=== PATIENT | male | born 1995 | race Caucasian/White ===

== ENCOUNTER 2017-01-02 17:06 | Inpatient (IN) | payer OTHER ==
[~2017-01-02] VITALS: Ht 167.6 cm; Wt 56.2 kg
--- NOTE | ~2017-01-02 | DS ---
Unit #: [id number] #: [id number] Patient: CARLINE SANCHEZ [id number] [facility] [address] [place] [address] [id number] MR#: [id number] NAME: CARLINE SANCHEZ ROOM: [facility] Age: 21 Sex: M Admission Date: 01/02/2017 : 1995 Discharge Date: 01/05/2017 Attending Physician: Alex Cruz M.D. Primary Care Physician: Generic Doctor Not In System DISCHARGE SUMMARY REASON FOR ADMISSION The patient is a 21-year-old white male admitted to the [facility] with increasing depression and use of cannabis. HOSPITAL COURSE The patient was admitted to the [facility] and placed on routine detoxification protocol for benzodiazepines. He was begun on citalopram 20 mg daily to address depressive symptoms. The patient was significantly brighter by the time of his discharge. He participated actively within the therapeutic milieu, was seen much less negative about his current life situation. This physician discussed with the patient his need to seek legal representation in his legal case in [place], [place], and the patient was agreeable with this plan, and by 01/05/2017 discharge was ordered. FINAL DIAGNOSES 1. Dysthymic disorder. 2. Cannabis use disorder. 3. Sedative-hypnotic use disorder. DISPOSITION ON DISCHARGE The patient was discharged on the following medications: 1. Celexa 20 mg daily for depression. 2. Trazodone 50 mg at h.s. p.r.n. insomnia. DIET AND ACTIVITY No dietary or physical restrictions placed on the patient at the time of discharge. FOLLOWUP Followup will take place through the auspices of community mental health resources. Dictated by... Alex Cruz M.D. CB/dianna TD: 01/06/2017 12:45 JOB #: [id number] Unit #: [id number] #: [id number] Patient: CARLINE SANCHEZ DISCHARGE SUMMARY Page 1 of 1 X Alex Cruz MD X DISCHARGE SUMMARY
--- NOTE | ~2017-01-02 | HP ---
Unit #: [id number] #: [id number] Patient: CARLINE SANCHEZ [id number] [facility] [address] [place] [address] [id number] MR#: [id number] NAME: CARLINE SANCHEZ ROOM: [facility]181 Age: 21 Sex: M Admission Date: 01/02/2017 : 1995 Attending Physician: Alex Cruz M.D. Admitting Physician: Alex Cruz M.D. Primary Care Physician: Generic Doctor Not In System HISTORY AND PHYSICAL HISTORY OF PRESENT ILLNESS Patient is a 21-year-old male admitted to [facility] on 01/02/2017 for suicidal ideations. PAST MEDICAL HISTORY Significant for polysubstance use including marijuana and benzodiazepines. PAST SURGICAL HISTORY 1. Chest tube after a pneumothorax. 2. Left femur. 3. Collar bone. SOCIAL HISTORY He works at [employer]. He lives with his ex. He smokes one-half pack of cigarettes daily, uses two grams of marijuana daily and benzos whenever he can get them. FAMILY MEDICAL HISTORY Noncontributory. ALLERGIES No known drug allergies. CURRENT MEDICATIONS Patient is not on any home medications. REVIEW OF SYSTEMS CONSTITUTIONAL: No fever or chills. HEENT: Denies any sore throat, ear pain or runny nose. CARDIOVASCULAR: Denies chest pain, irregular heart rhythm or palpitations. CHEST: Denies shortness of breath or cough. No hemoptysis. GASTROINTESTINAL: Denies nausea, vomiting, diarrhea or chronic constipation. ENDOCRINE: Denies history of increased thirst or urination. No recent significant weight loss or gain. GENITOURINARY: Denies dysuria, frequency, or hematuria. SKIN: Denies any rashes. HEMATOLOGIC: Denies history of increased bleeding or bruising. MUSCULOSKELETAL: Denies any hot, swollen joints. No generalized muscle pain. NEUROLOGIC: Denies problems with vision or speech. No frequent, severe headaches. No numbness, tingling or weakness in any extremities. Denies loss of bladder or bowel control. Unit #: [id number] #: [id number] Patient: CARLINE SANCHEZ PHYSICAL EXAM GENERAL: He is awake, alert and oriented in no acute distress. VITAL SIGNS: Temperature 98.2, heart rate 71, respiration 16, blood pressure 126/76. HEIGHT: 5 foot 6. WEIGHT: 124 pounds. SKIN: Warm and dry without rash or lesion. HEENT: Normocephalic. TMs not viewed. Oral and nasal passages clear. Conjunctivae clear. PERRLA. EOMs intact. NECK: Supple without lymphadenopathy or thyromegaly. HEART: Regular rate and rhythm without murmur. LUNGS: Clear. ABDOMEN: Soft, nontender. : Not done. EXTREMITIES: No evidence of cyanosis, clubbing or edema. Moves all without focal deficit. NEUROLOGICAL: Grossly within normal limits. Cranial Nerves: II: Visual ospina are intact. III, IV AND : Extraocular movements are intact. Pupils are equal, round and reactive to light. V: Facial sensation is grossly normal. VII: Facial movements and expression are normal. VIII: Auditory acuity grossly intact. IX, X: Uvula is midline. Phonation is normal. XI: Patient shrugs shoulders and turns head normally. XII: Tongue protrudes in the midline. Sensory and Motor Function: Sensory and motor sensation is grossly normal. Motor: moves all extremities well. IMPRESSION 1. Psychiatric admission. 2. Polysubstance use. 3. Nicotine dependence. RECOMMENDATIONS Psychiatric per psychiatrist. MEDICAL: No contraindication to participate in facility activities. MEDICAL PROGNOSIS Good. MEDICAL CONDITION Stable. Dictated by... Kimberlee Orozco/dutch TD: 01/04/2017 01:57 JOB #: [id number] Unit #: [id number] #: [id number] Patient: CARLINE SANCHEZ HISTORY AND PHYSICAL Page 1 of 1 X CARINA LUA APRN HISTORY AND PHYSICAL
--- NOTE | ~2017-01-02 | PA ---
Unit #: [id number] #: [id number] Patient: CARLINE SANCHEZ [id number] [facility] [address] [place] [address] [id number] MR#: [id number] NAME: CARLINE SANCHEZ ROOM: 81 Age: 21 Sex: M Admission Date: 01/02/2017 : 1995 Date of Assessment: 01/03/2017 Attending Physician: Alex Cruz M.D. Admitting Physician: Alex Cruz M.D. Primary Care Physician: Generic Doctor Not In System PSYCHIATRIC ASSESSMENT IDENTIFYING INFORMATION The patient is a 21-year-old white male admitted to the [address] [place] [address] reporting increasing suicidal ideation, anxiety and abuse of various psychoactive substances. CHIEF COMPLAINT None given. INFORMANT Patient and chart, reliability good. HISTORY OF PRESENT ILLNESS The patient is a 21-year-old white male admitted to the [address] [place] [address] reporting a history of increasing anxiety, depression and suicidal ideation. The patient reports that he has had plans to burn down his business or shoot himself using a weapon that "won't fucking jam." The patient reports that he last attempted suicide approximately two years ago but has never sought psychiatric help and has never gone on an antidepressant or other psychiatric medication. He does report a history of treatment at [facility] when he was in the third grade related to a history of violent behavior. The patient currently lives with his ex-girlfriend and is employed as a television servicer at a local [employer]. He reports abuse of "just about everything except cocaine and methamphetamine." He denies any history of intravenous drug use. The patient denies prior history of treatment with any psychotropic medications. He denies recent changes in his sleep or appetite but does complain of hopelessness and lack of energy. PAST PSYCHIATRIC HISTORY As above. PAST MEDICAL HISTORY Noncontributory. MEDICATIONS None. ALLERGIES None. FAMILY HISTORY The patient reports that his whole family is "fucked up." Unit #: [id number] #: [id number] Patient: CARLINE SANCHEZ SOCIAL HISTORY The patient lives with his ex-girlfriend. He is currently facing legal charges related to trafficking marijuana and is scheduled to go to trial on 01/11 of this year. He reports substance use as noted previously. MENTAL STATUS EXAMINATION At this time reveals the patient to be a well-developed, well-nourished white male, appearing his stated age. He is in (1)____ and grotesquely tattooed. The patient is awake, alert, and oriented in all spheres. His mood is dysphoric. His affect blunted. Speech is generally relevant and coherent. There are no gross deficits in memory or cognition noted. Intelligence is judged to be in the average range based on fund of knowledge. The patient is cooperative throughout the interview. He is currently endorsing positive suicidal ideation. He denies homicidal ideation. He denies any psychotic symptoms. His judgment and insight appear to be reasonably intact. ASSETS AND LIABILITIES ASSETS: Motivation for change. LIABILITIES: Lack of resources. DIAGNOSTIC IMPRESSION 1. Dysthymic disorder. 2. Borderline personality disorder. 3. Alcohol use disorder. 4. Opioid use disorder. TREATMENT PLAN The patient remains hospitalized for safety and stabilization. Suicide precautions are in place. I will begin a trial of citalopram 20 mg a day but the patient is sternly warned regarding the potential interaction of this medication with substances of abuse. ESTIMATED LENGTH OF STAY IN THE HOSPITAL Three to five days with followup to take place through the auspices of community mental health resources. Dictated by... Alex Cruz M.D. JEAN/dutch TD: 01/04/2017 00:31 JOB #: [id number] Unit #: [id number] #: [id number] Patient: CARLINE SANCHEZ PSYCHIATRIC ASSESSMENT Page 1 of 1 X Alex Cruz MD X PSYCHIATRIC ASSESSMENT
--- NOTE | ~2017-01-02 | PN ---
Unit #: [id number] #: [id number] Patient: CARLINE SANCHEZ [id number] [facility] [address] [place] [address] [id number] MR#: [id number] NAME: CARLINE SANCHEZ ROOM: 81 Age: 21 Sex: M Admission Date: 01/02/2017 : 1995 Attending Physician: Alex Cruz M.D. Admitting Physician: Alex Cruz M.D. Primary Care Physician: Generic Doctor Not In System [facility] PROGRESS NOTES DATE 01/04/2017 DISCUSSION The patient's mood is a bit brighter today. He complains of poor sleep last evening and I will add p.r.n. trazodone to his currently prescribed medications. He continues to endorse hopelessness related to his legal situation. Dictated by... Alex Cruz M.D. CB/dutch TD: 01/05/2017 00:13 JOB #: [id number] [facility] PROGRESS NOTES Page 1 of 1 X Alex Cruz MD X PROGRESS NOTE
[2017-01-03 13:21] LABS: ALBUMIN SERUM 4.3 g/dL (3.5-5.0); BUN/CREATININE RATIO 12.72; CALCIUM SERUM 9.6 mg/dL (8.4-10.2); CREATININE SERUM 1.1 mg/dL (0.6-1.4); GLOM FILT RATE Estimated 96.1 mL/min (>60); POTASSIUM 4.2 mmol/L (3.5-5.1)
[2017-01-03 13:30] LABS: BASOPHIL% 0.5 % (0-2.5); EOSINOPHIL# 0.1 X10e3 (0-0.7); EOSINOPHIL% 1.7 % (0.0-7.0); HEMATOCRIT 44.7 % (38.0-50.0); HEMOGLOBIN 14.9 gm/dL (13.0-16.0); LYMPHOCYTE# 2.1 X10e3 (1.0-3.5); MEAN CELL VOLUME 85.8 FL (83-96); MEAN CORPUSCULAR HEMOGLOBIN 28.5 PG (28-34); MEAN CORPUSCULAR HGB CONC 33.3 g/dL (30-36); MEAN PLATELET VOLUME 8.9 FL (6.5-11.5); MONOCYTE# 0.5 X10e3 (0-1.0); MONOCYTE% 7.9 % (3.0-12.0); NEUTROPHIL% 52.9 % (40-75); PLATELET COUNT 196 X10e3 (140-420); RED BLOOD COUNT 5.22 X10e (3.90-5.60); RED CELL DISTRIBUTION WIDTH 13.4 % (11.0-15.5); WHITE BLOOD COUNT 5.7 X10e3 (4.0-10.5)
[2017-01-03 13:37] LABS: DIFF IND NO
== END 2017-01-05 15:55 | DRG 881 ==
LOC: P1E 20:26
PROVIDERS: Specialist
PROC: HZ2ZZZZ Detoxification Services for Substance Abuse Treatment (ICD-10-PCS; principal; 2017-01-02)
DX: F34.1 Dysthymic disorder (principal); R45.851 Suicidal ideations; F11.10 Opioid abuse, uncomplicated; F60.3 Borderline personality disorder; F10.10 Alcohol abuse, uncomplicated; F17.210 Nicotine dependence, cigarettes, uncomplicated; F12.10 Cannabis abuse, uncomplicated; F13.10 Sedative, hypnotic or anxiolytic abuse, uncomplicated
CPT/HCPCS: 80053; 85025